=== PATIENT | female | born 1925 | race Caucasian/White ===

== ENCOUNTER 2016-07-22 11:15 | Outpatient (CLI) | payer MEDICARE ==
--- NOTE | 2016-07-22 19:17 | RAD ---
LUMBAR SPINE THREE VIEWS 07/22/2016 COMPARISON: Rib study from 08/05/2013, which did show portions of the thoracolumbar spine. FINDINGS: In the interval, a compression fracture of T12 has occurred. The anterior height is red uced by about 25%. There is no displacement of fragments. The lumbar vertebrae themselves appear i ntact. A degenerated disk is present at L4-L5 with disk space narrowing. Some facet arthritis is n oted at L4 and below. The SI joints are normal in appearance. The aorta and iliac arteries are den sely calcified. IMPRESSION Interval appearance of a T12 compression fracture, not present in 2013. POS: HOME
== END 2016-07-22 11:16 | disposition home or self-care (01) ==
LOC: BURRAD 11:15
PROVIDERS: ATTEND Clinical Nurse Specialist Medical-Surgical
DX: M54.9 Dorsalgia, unspecified (principal); M48.54XA Collapsed vertebra, not elsewhere classified, thoracic region, initial encounter for fracture
CPT/HCPCS: 72100

== ENCOUNTER 2016-07-25 14:58 | Outpatient (CLI) | payer MEDICARE, MEDICAID ==
--- NOTE | 2016-07-25 20:22 | RAD ---
RIGHT KNEE FOUR VIEWS: Date: 07-25-16 FINDINGS: No gross fracture or joint effusion was detected. The joint space is normal in width. There is erasmo cification of the SFA and popliteal arteries. On one view there was a question of irregularity of t he fibular head, but on other views it does not appear abnormal. Unless there was point tenderness here, I would tend to disregard the finding. IMPRESSION: Probably no acute finding. POS: HOME
--- NOTE | 2016-07-25 20:23 | RAD ---
RIGHT HIP TWO VIEWS: Date: 07-25-16 FINDINGS: No fracture was apparent at this time. Subtle fractures in patients with osteoporosis like this cou ld sometimes be missed early on and require follow up imaging. The hip joint space is normal. Dege nerative changes in the hip are minimal. IMPRESSION: No acute finding. POS: HOME
--- NOTE | 2016-07-25 20:24 | RAD ---
THORACIC SPINE THREE VIEWS 07/25/16 Comparison is made with a 07/22/16 lumbar spine film also done at [place]. As before, an anterior compression fracture of T12 was apparent. The degree of compression has worse lindsey in a three day period of time. The anterior height has now been reduced by about 60 to 70% where as it was closer to 50% before. No grossly displaced fragments are seen posteriorly. There is also a very mild compression of the T7 vertebral body. The bones are osteoporotic. Some pleural fluid is s uggested in the left hemithorax. IMPRESSION: 1. Worsening anterior compression of the T12 vertebral body since the study done three days ago . 2. Very mild anterior compression of T7. Code T POS: HOME
--- NOTE | 2016-07-25 20:25 | RAD ---
LUMBAR SPINE THREE VIEWS: Date: 07-25-16 Comparison: 07-22-16 FINDINGS: The T12 compression fracture has worsened over the interval with further loss of height anteriorly. See thoracic spine report for details. The lumbar spine proper shows no change. Degenerative disc disease at L4-5 is present. No lumbar fractures were detected. Arterial sclerotic change is seen in the aorta and iliac vessels. The SI joints are difficult to see well but are reasonably symmetri erasmo. The patient has retained barium in the colon from a recent CT procedure. IMPRESSION: Further compression of T12. No belt changer the last few days in the lumbar vertebrae themselves. POS: HOME
== END 2016-07-25 14:59 | disposition home or self-care (01) ==
LOC: BURRAD 14:58
PROVIDERS: ATTEND Clinical Nurse Specialist Medical-Surgical
DX: M54.5 Low back pain (principal); M79.604 Pain in right leg; E88.89 Other specified metabolic disorders
CPT/HCPCS: 72070; 72100